=== PATIENT | male | born 1990 | race African-American/Black ===

== ENCOUNTER 2017-06-27 18:47 | Emergency (ER) | payer SELFPAY ==
[2017-06-27] MEDS ORDERED: Acetaminophen 500 MG TAB ONE (19:04)
[2017-06-27] MEDS ORDERED: Ketorolac Tromethamine 60 MG/2 ML VIAL ONE (19:04)
== END 2017-06-27 19:29 | disposition home or self-care (01) ==
LOC: ERS 18:47
DX: K04.7 Periapical abscess without sinus (principal); K12.2 Cellulitis and abscess of mouth
CPT/HCPCS: 96372; J1885